=== PATIENT | female | born 1955 | race American Indian/Alaskan Native ===

== ENCOUNTER 2016-11-08 10:03 | Outpatient (CLI) | payer MEDICAID ==
--- NOTE | 2016-11-08 13:59 | Magnetic Resonance Report ---
MRI LUMBAR SPINE WITHOUT CONTRAST HISTORY: Back pain. TECHNIQUE: axial T1, T2. sagittal T1,T2, STIR. COMPARISON: none. FINDINGS: The conus terminates at L1. No signal abnormality or mass. The cauda equina is within normal limits. Normal height and alignment of the lumbar vertebra. The facet joints are in appropriate relationship. Normal bone marrow signal. No acute fracture or suspicious bone lesion. Mild multilevel disc desiccation and narrowing is demonstrated. Mild to moderate multilevel facet arthropathy. L1-2: No significant abnormality. L2-3: No significant abnormality. L3-4: A moderate circumferential bulging disc is identified. Moderate facet hypertrophy and hypertrophy of ligamentum flavum. There is moderate central canal narrowing measuring 7 mm in AP dimension. Right neural foraminal narrowing is estimated at 50%. Left neural foraminal narrowing is estimated at 25%.. L4-5: A mild posterior bulging disc is identified. Mild to moderate facet hypertrophy and hypertrophy ligamentum flavum. There is mild central canal narrowing measuring 8 mm AP dimension. Left neural foraminal narrowing is estimated at 25%. L5-S1: No significant abnormality. IMPRESSION: Lumbar spondylosis as described. L3-4 appears to be the most affected level.
== END 2016-11-08 10:04 | disposition home or self-care (01) ==
LOC: MRI 10:03
PROVIDERS: ATTEND Internal Medicine
DX: M47.896 Other spondylosis, lumbar region (principal); M12.88 Other specific arthropathies, not elsewhere classified, other specified site; M24.28 Disorder of ligament, vertebrae
CPT/HCPCS: 72148

== ENCOUNTER 2018-08-22 08:06 | Outpatient (CLI) | payer MEDICAID ==
--- NOTE | 2018-08-22 11:56 | Mammography Report ---
BILATERAL DIGITAL SCREENING MAMMOGRAM with CAD: 08/22/18 08:06:00 CLINICAL: Routine screening. COMPARISON:None available. FINDINGS: There are bilateral scattered fibroglandular densities. Right asymmetries require additional imaging.No architectural distortion or suspicious calcifications.The left breast is negative. IMPRESSION: Right asymmetries requiring further workup. BI-RADS CATEGORY: 0 -- Additional Imaging Evaluation Required RECOMMENDATION: Recall for right mediolateral , spot magnification CC and MLO views and right breast ultrasound if needed. ACR BI-RADS MAMMOGRAPHIC CODES: 0 = Needs additional imaging evaluation; 1 = Negative; 2 = Benign; 3 = Probably benign; 4 = Suspicious; 5 = Malignant; 6 = Known biopsy-proven malignancy COMMENT: 1. Dense breast tissue, i.e., adenosis, fibrocystic changes, etc., may obscure an underlying neoplasm. 2. Approximately 10% of cancers are not detected with mammography. 3. A negative mammography report should not delay biopsy if a clinically suspicious mass is present. COMMENT: Patient follow-up letters are generated via our [employer] application.
== END 2018-08-22 08:07 | disposition home or self-care (01) ==
LOC: MAMMO 08:06
PROVIDERS: ATTEND Internal Medicine
DX: Z12.31 Encounter for screening mammogram for malignant neoplasm of breast (principal)
CPT/HCPCS: 77067

== ENCOUNTER 2018-11-27 08:45 | Outpatient (CLI) | payer MEDICAID ==
--- NOTE | 2018-11-27 09:13 | Mammography Report ---
RIGHT DIGITAL DIAGNOSTIC MAMMOGRAM : 11/27/18 08:45:00 CLINICAL: Recalled for asymmetry. COMPARISON:08/22/18 screening FINDINGS: Additional mammographic views were performed and are negative. IMPRESSION: Negative Mammogram. BI-RADS CATEGORY: 1 -- Negative RECOMMENDATION: Routine mammographic screening in one year. ACR BI-RADS MAMMOGRAPHIC CODES: 0 = Needs additional imaging evaluation; 1 = Negative; 2 = Benign; 3 = Probably benign; 4 = Suspicious; 5 = Malignant; 6 = Known biopsy-proven malignancy COMMENT: 1. Dense breast tissue, i.e., adenosis, fibrocystic changes, etc., may obscure an underlying neoplasm. 2. Approximately 10% of cancers are not detected with mammography. 3. A negative mammography report should not delay biopsy if a clinically suspicious mass is present. COMMENT: Patient follow-up letters are generated via our [employer] application.
== END 2018-11-27 08:46 | disposition home or self-care (01) ==
LOC: MAMMO 08:45
PROVIDERS: ATTEND Internal Medicine
DX: R92.8 Other abnormal and inconclusive findings on diagnostic imaging of breast (principal)

== ENCOUNTER 2018-12-11 07:52 | Outpatient (CLI) | payer MEDICAID ==
--- NOTE | 2018-12-11 08:36 | XRay Report ---
Right shoulder 3 views: History: Right shoulder pain. Findings: Glenohumeral joint appears normal. Mild arthritic changes in the a.c. joint. No soft tissue calcification. No fracture or dislocation. Impression Mild arthritic changes a.c. joint.
== END 2018-12-11 07:53 | disposition home or self-care (01) ==
LOC: XRAY 07:52
PROVIDERS: ATTEND Physician Assistant Medical
DX: M19.011 Primary osteoarthritis, right shoulder (principal); M25.512 Pain in left shoulder